=== PATIENT | male | born 1990 | race Hispanic/Latino ===

== ENCOUNTER 2018-03-12 12:24 | Emergency (ER) | payer OTHER ==
[~2018-03-12] VITALS: Ht 170.2 cm; Wt 59.0 kg
--- OUTSIDE RECORDS SUMMARY | 2018-03-12 12:27 | XMS REPORT | Continuity of Care Document ---
Author Author [facility] [place] Interface Address Unknown Phone Unavailable Problems Problem Status Onset Date Classification Date Reported Comments Source Dyspnea at rest 03/12/2018 Diagnosis 03/12/2018 [facility] Elevated blood pressure 03/12/2018 Diagnosis 03/12/2018 [facility] Viral upper respiratory tract infection 03/10/2018 Diagnosis 03/12/2018 [facility] Viral Upper Respiratory Tract Infection 03/09/2018 Problem 03/12/2018 [facility] Dyspnea 03/09/2018 Problem 03/12/2018 [facility] Influenza 04/03/2017 Diagnosis 04/03/2017 [facility] Influenza vaccine needed 01/17/2017 Diagnosis 01/17/2017 [facility] Tuberculosis screening 01/17/2017 Diagnosis 01/17/2017 [facility] Acute maxillary sinusitis 12/11/2015 Diagnosis 12/11/2015 [facility] Sore throat symptom 12/11/2015 Diagnosis 12/11/2015 [facility] 346.01 - MGRN W AURA W N Active 01/23/2014 [facility] [place] Acute Maxillary Sinusitis Problem 04/03/2017 [facility] Sore Throat Symptom Problem 04/03/2017 [facility] Medications Medication Details Route Status Patient Instructions Ordering Provider Order Date Source Purified Protein Derivative of Tuberculin 50 UNT/ML Injectable Solution [Tubersol] Tubersol 5 tub. unit/0.1 mL intradermal injection solution Inject 0.1 mL by intradermal route. Active [facility] Brompheniramine Maleate 0.4 MG/ML / Dextromethorphan Hydrobromide 2 MG/ML / Pseudoephedrine Hydrochloride 6 MG/ML Oral Solution [Bromfed DM] Bromfed DM 2 mg-30 mg-10 mg/5 mL syrup Take 10 mL every 6-8 hours by oral route as needed for 6 days. Active [facility] Amoxicillin 875 MG / Clavulanate 125 MG Oral Tablet [Augmentin] Augmentin 875 mg-125 mg tablet Take 1 tablet every 12 hours by oral route with meals for 7 days. Active [facility] benzonatate 200 MG Oral Capsule benzonatate 200 mg capsule Take 1 capsule 3 times a day by oral route as needed for cough. Active [facility] levocetirizine dihydrochloride 5 MG Oral Tablet [Xyzal] Xyzal 5 mg tablet Take 1 tablet every day by oral route at bedtime for 30 days. Active [facility] Albuterol 0.83 MG/ML Inhalant Solution albuterol sulfate 2.5 mg/3 mL (0.083 %) solution for nebulization Give 1 inhalation every 20 minutes by nebulizer route as needed Active [facility] Brompheniramine Maleate 0.4 MG/ML / Dextromethorphan Hydrobromide 2 MG/ML / Pseudoephedrine Hydrochloride 6 MG/ML Oral Solution reamtlpyvvyhmjo-anirzbmjgqmpaol-ZZ 2 mg-30 mg-10 mg/5 mL syrup Take 10 mL every 6-8 hours by oral route as needed for 6 days. Active [facility] Albuterol 0.09 MG/ACTUAT Metered Dose Inhaler ProAir HFA 90 mcg/actuation aerosol inhaler Inhale 2 puffs every 4-6 hours by inhalation route as needed. Active [facility] Allergies, Adverse Reactions, Alerts Substance Category Reaction Severity Reaction type Status Date Reported Comments Source Immunizations Immunization Date Given Site Status Last Updated Comments Source influenza, unspecified formulation 01/02/2018 completed [facility] influenza, injectable, quadrivalent, preservative free 01/17/2017 completed [facility] Hep B, adolescent or pediatric 03/30/2014 completed [facility] Results Order Name Results Value Reference Range Date Interpretation Comments Source PEF 620 03/12/2018 [facility] Percent Predicted Value 56 % 03/12/2018 [facility] PEF 250 03/10/2018 [facility] Percent Predicted Value 40 % 03/10/2018 [facility] PEF 620 03/09/2018 [facility] Percent Predicted Value 56 % 03/09/2018 [facility] Influenza A positive 04/03/2017 [facility] Influenza B negative 04/03/2017 [facility] RESULT negative 12/11/2015 [facility] SWAB LOCATION Left and Right tonsillar pillars 12/11/2015 [facility] Brain wo contrast MRA Brain wo contrast MRA MRI BRAIN WITHOUT CONTRAST, MRA [place] WITHOUT CONTRAST INDICATION: Migraine with aura, cerebral aneurysm COMPARISON: None DISCUSSION: BRAIN: The white matter is normal in signal. There is no evidence of acute ischemic insults, space occupying lesions, hemorrhage, hydrocephalus, midline shift or extra-axial collections. No cortical based, suprasellar, craniocervical, or bone marrow abnormalities are seen. MRA [place]: The bilateral internal carotid arteries are patent. The bilateral anterior and middle cerebral arteries are patent. The vertebrobasilar arteries and bilateral posterior cerebral arteries are patent. 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 The right anterior cerebral artery arises from the left side. The left TRINH is prominent. A prominent left posterior communicating artery is visible. The vertebral arteries are codominant. No aneurysms or vascular malformations are visualized. IMPRESSION: 1. No intracranial abnormalities are visualized. 2. Unremarkable MRA of the [place]. SL: 16 01/26/2014 - - Read by: Lenard Burkett MD Dictated Date/time: 01/28/14 08:39 Electronically Signed by: Lenard Burkett MD 01/28/14 08:47 FINAL REPORT [facility] Brain wo contrast MRI Brain wo contrast MRI MRI BRAIN WITHOUT CONTRAST, MRA [place] WITHOUT CONTRAST INDICATION: Migraine with aura, cerebral aneurysm COMPARISON: None DISCUSSION: BRAIN: The white matter is normal in signal. There is no evidence of acute ischemic insults, space occupying lesions, hemorrhage, hydrocephalus, midline shift or extra-axial collections. No cortical based, suprasellar, craniocervical, or bone marrow abnormalities are seen. MRA [place]: The bilateral internal carotid arteries are patent. The bilateral anterior and middle cerebral arteries are patent. The vertebrobasilar arteries and bilateral posterior cerebral arteries are patent. 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 The right anterior cerebral artery arises from the left side. The left TIRNH is prominent. A prominent left posterior communicating artery is visible. The vertebral arteries are codominant. No aneurysms or vascular malformations are visualized. IMPRESSION: 1. No intracranial abnormalities are visualized. 2. Unremarkable MRA of the [place]. SL: 16 01/26/2014 - - Read by: Lenard Burkett MD Dictated Date/time: 01/28/14 08:39 Electronically Signed by: Lenard Burkett MD 01/28/14 08:47 FINAL REPORT [facility] Vital Signs Vital Sign Value Date Comments Source Diastolic (mm Hg) 80 03/12/2018 [facility] Height 67 03/12/2018 [facility] Systolic (mm Hg) 110 03/12/2018 [facility] Weight 130 03/12/2018 [facility] Diastolic (mm Hg) 70 03/09/2018 [facility] Height 67 03/09/2018 [facility] Systolic (mm Hg) 108 03/09/2018 [facility] Weight 130 03/09/2018 [facility] Diastolic (mm Hg) 64 04/03/2017 [facility] Height 67 04/03/2017 [facility] Systolic (mm Hg) 104 04/03/2017 [facility] Weight 125 04/03/2017 [facility] Height 67 01/17/2017 [facility] Weight 125 01/17/2017 [facility] Diastolic (mm Hg) 78 12/11/2015 [facility] Height 67 12/11/2015 [facility] Systolic (mm Hg) 118 12/11/2015 [facility] Weight 120 12/11/2015 [facility] Encounters Location Location Details Encounter Type Encounter Number Reason For Visit Attending Provider ADM Date DC Date Status Source [facility] [place] [facility] [id number] Theodora Yoon 01/26/2014 01/27/2014 [facility] [place] - [facility] - [id number] Uma Paris, WORK ORDER DETAILER: [address] [place] [address], Ph. [phone] [id number] Uma Paris 09/17/2015 [facility] [place] [facility] - [id number] Beatriz Holbrook, WORK ORDER DETAILER: [address] [place] [address], Ph. [id number] Beatriz Holbrook 12/11/2015 [facility] [place] [facility] - [id number] LUCIA Layne-C: [address] [place] [address], Ph. [id number] Mohit Holbrook 01/17/2017 [facility] [place] [facility] - [id number] Dickson Stone, WORK ORDER DETAILER: [address], [place] [address], Ph. [id number] Dickson Stone 04/03/2017 [facility] [place] [facility] - [id number] Tonia Arevalo, WORK ORDER DETAILER-C: [address], [place] [address], Ph. [id number] Tonia Clementsroy 03/09/2018 [facility] [place] [facility] - [id number] Tonia Arevalo, WORK ORDER DETAILER-C: [address], [place] [address], Ph. [id number] Tonia Clementsroy 03/09/2018 [facility] [place] [facility] - [id number] Tonia Arevalo, WORK ORDER DETAILER-C: [address], [place] [address], Ph. [id number] Tonia Clementsroy 03/09/2018 [facility] [place] [facility] - [id number] Anainfritz Phan, WORK ORDER DETAILER-C: [address], [place] [address], Ph. [id number] Mindi Phan 03/12/2018 [facility] [place] [facility] - [id number] Anainfritz Phan, WORK ORDER DETAILER-C: [address], [place] [address], Ph. [id number] Mindi Phan 03/12/2018 [facility] Procedures Procedure Code Date Perfomer Comments Source
--- OUTSIDE RECORDS SUMMARY | 2018-03-12 12:27 | XMS REPORT | Summary of Care ---
Author Organization Unknown Address Unknown Phone Unavailable Encounter HQ Rober_winston(CALROS) [id number] Date(s): 01/26/14 - 01/26/14 [facility] Outpatient Imaging [address] Discharge Disposition: Home Physician Attending: Theodora Yoon MD Reason for Visit 346.01 - MGRN W AURA W N Problem List No data available for this section Allergies, Adverse Reactions, Alerts No data available for this section Medications No data available for this section Medications Administered During Your Visit No data available for this section Immunizations No data available for this section
--- OUTSIDE RECORDS SUMMARY | 2018-03-12 12:28 | XMS REPORT | Encounter Summary ---
Author Organization Unknown Address [address] [place] [address] Phone [phone] Reason for Visit Medical Complaint Instructions 1. Dyspnea at rest 2. Elevated blood pressure elevated blood pressure: care instructions dash diet: care instructions blood pressure monitoring education Discussion Note: None recorded. Plan of Care Patient Instructions How can you care for yourself at home? Drink lots of water and other fluids. This helps thin the mucus and soothes a dry or sore throat. Honey or lemon juice in hot water or tea may ease a dry cough. Take cough medicine as directed by your doctor. Prop up your head on pillows to help you breathe and ease a dry cough. Try cough drops to soothe a dry or sore throat. Cough drops don't stop a cough. Medicine-flavored cough drops are no better than candy-flavored drops or hard candy. Do not smoke. Avoid secondhand smoke. If you need help quitting, talk to your doctor about stop-smoking programs and medicines. These can increase your chances of quitting for good. When should you call for help? Call 911 anytime you think you may need emergency care. For example, call if: You have severe trouble breathing. Call your doctor now or seek immediate medical care if: You cough up blood. You have new or worse trouble breathing. You have a new or higher fever. You have a new rash. Watch closely for changes in your health, and be sure to contact your doctor if: You cough more deeply or more often, especially if you notice more mucus or a change in the color of your mucus. You have new symptoms, such as a sore throat, an earache, or sinus pain. You do not get better as expected. Reminders Provider Appointments None recorded. Lab None recorded. Referral None recorded. Procedures None recorded. Surgeries None recorded. Imaging None recorded. Medications Name Start Date albuterol sulfate 2.5 mg/3 mL (0.083 %) solution for nebulization Give 1 inhalation every 20 minutes by nebulizer route as needed taaytvcfqhajpoo-hbdsztvwqispxdb-RN 2 mg-30 mg-10 mg/5 mL syrup Take 10 mL every 6-8 hours by oral route as needed for 6 days. Medications Administered None recorded. Vitals Height Weight BMI Blood Pressure 5 ft 7 in 130 lbs 20.4 kg/m2 110/80 mm[Hg] Lab Results Date Name Specimen Result Interpretation Description Value Range Status Address 03/09/2018 Peak Flow Pef 250 [facility]: 9 [facility] Percent Predicted Value 40% [facility]: 9 [facility] Peak Flow Pef 620 [facility]: 9 [facility] Percent Predicted Value 56% [facility]: 9 [facility] Allergies Code Code System Name Reaction Severity Status Onset NKDA Problems Name Status Onset Date Source Viral Upper Respiratory Tract Infection Active 03/09/2018 Dyspnea Active 03/09/2018 Procedures None recorded. Vaccine List Vaccine Type Hep B, adolescent or pediatric mL influenza, injectable, quadrivalent, preservative free 01/17/2017 influenza, unspecified formulation 01/02/2018 Social History Smoking Status Never Smoker Past Encounters 03/12/2018 Dyspnea at Rest; Elevated Blood Pressure Deliciatessytye Emilie GREEN MARKETING SPECIALIST-C: [address] [place] [address], Ph. 03/09/2018 Viral Upper Respiratory Tract Infection; Dyspnea Tonia Arevalo GREEN MARKETING SPECIALIST-C: [address] [place] [address], Ph. History of Present Illness Cough Reported By: Patient HPI: Location: chest. Quality: productive cough. Duration: 3 days. Severity: severe. Onset/Timing: gradual. Context: no sick contacts, no foreign travel, non- smoker, allergies. Modifying factors: ; pt was given inhaler last visit and states it does not work for him. Associated Symptoms: no sputum production, no wheezing, no sweats, no significant weight gain, no significant weight loss, no sore throat, no vomiting, no diarrhea, no rash, no nausea, no fever/chills, no muscle aches, no headache, shortness of breath, difficulty breathing at night, morning cough; dizziness Review of Systems:ROS as noted in the HPI Review of Systems Basic Reported By: Patient Physical Exam Adult Basic, Adult Male Complete Reported By: Patient Constitutional: General Appearance: healthy-appearing, well-nourished, well-developed. Level of Distress: acutely ill. Ambulation: ambulating normally Psychiatric: Mental Status: active and alert. Orientation: to time, to place, to person Lungs: Respiratory effort: no dyspnea, no tachypnea, no use of accessory muscles, no intercostal retractions. Auscultation: breath sounds normal Cardiovascular: Heart Auscultation: RRR, no murmurs
--- OUTSIDE RECORDS SUMMARY | 2018-03-12 12:28 | XMS REPORT | Encounter Summary ---
Author Organization Unknown Address [address] [place] [address] Phone [phone] Reason for Visit Medical Complaint Instructions 1. Acute maxillary sinusitis Augmentin 875 mg-125 mg tablet Xyzal 5 mg tablet benzonatate 200 mg capsule 2. Sore throat symptom rapid strep group A, throat Discussion Note: None recorded. Patient educational handouts: No information available. Plan of Care Patient Instructions Take antibiotic as prescribed. Handwashing. Increase fluid intake and plenty of rest. May take tynenol/motrin for pain. may use cloraseptic throat spray for sore throat. Start onRhinocort daily x 7days.If no improvement in 3 days, or worsening of symptoms, see primary care physician or call clinic. Reminders Provider Appointments None recorded. Lab Rapid Strep Group a, Throat 12/11/2015 [facility] Referral None recorded. Procedures None recorded. Surgeries None recorded. Imaging None recorded. Medications Name Start Date Augmentin 875 mg-125 mg tablet Take 1 tablet every 12 hours by oral route with meals for 7 days. benzonatate 200 mg capsule Take 1 capsule 3 times a day by oral route as needed for cough. Xyzal 5 mg tablet Take 1 tablet every day by oral route at bedtime for 30 days. Medications Administered None recorded. Vitals Height Weight BMI Blood Pressure 5 ft 7 in 120 lbs 18.8 118/78 Lab Results Date Name Result Description Value Range Status Rapid Strep Group a, Throat Result negative Swab Location Left and Right tonsillar pillars Allergies Name Reaction Severity Onset NKDA Problems Name Status Onset Date Source Acute Maxillary Sinusitis Active Encounter Sore Throat Symptom Active Encounter Procedures None recorded. Vaccine List Vaccine Type Hep B, adolescent or pediatric mL Social History Smoking Status Never Smoker Past Encounters 12/11/2015 Acute Maxillary Sinusitis; Sore Throat Symptom Beatriz Holbrook, MOBILE EQUIPMENT SERVICER: [address] [place] [address], Ph. History of Present Illness Throat-Oral Complaint Reported By: Patient HPI: Location: throat. Quality: sore throat, congested, dry or hacking cough, feels 50 percent of normal. Severity: moderate. Duration: 2 days. Onset/Timing: gradual. Context: no sick contacts, no foreign travel, non-smoker. Modifying factors: OTC medication. Associated Symptoms: no sputum production, no shortness of breath, no wheezing, no change in number of pillows needed to sleep at night, no sweats, no significant weight gain, no significant weight loss, no morning cough, no vomiting, no diarrhea, no rash, no nausea, sore throat Review of Systems Basic Reported By: Patient Constitutional: Constitutional: fever Eyes: Eyes: no eye complaints Jtey-Ojum-Fbwif-Throat: Ears: no ear complaints. Nose: nose/sinus problems. Mouth/Throat: no bleeding gums, no mouth complaints, no teeth problems, sore throat Cardiovascular: Cardiovascular: no chest pain, no shortness of breath, no known heart murmur Respiratory: Respiratory: no wheezing, no shortness of breath, cough Gastrointestinal: Gastrointestinal: no abdominal pain, no vomiting / diarrhea Genitourinary: Genitourinary: no urinary complaints, no discharge Musculoskeletal: Musculoskeletal: no muscle aches, no muscle weakness, no arthralgias/joint pain, no back pain Skin: Skin: no abnormal / changing mole, no jaundice, no rashes Neurologic: Neurologic: no loss of consciousness, no weakness, no numbness, no seizures, no dizziness, no headaches Physical Exam Adult Basic, Adult Male Complete Constitutional: General Appearance: healthy-appearing, well-nourished, well-developed. Level of Distress: NAD. Ambulation: ambulating normally Psychiatric: Mental Status: active and alert. Orientation: to time, to place, to person Eyes: Lids and Conjunctivae: non-injected, no discharge, no pallor. Pupils: PERRLA. Corneas: grossly intact. EOM: EOMI. Lens: clear. Sclerae: non-icteric. Vision: acuity grossly intact, peripheral vision grossly intact Hrm-Jpkh-Scawa-Throat: Ears: no lesions on external ear, no outer ear tenderness, EACs clear, TMs clear, middle ear fluid. Hearing: no hearing loss. Nose: no lesions on external nose, nares patent, no septal deviation, nasal passages clear, sinus tenderness, nasal discharge--purulent, post nasal drip. Lips, Teeth, and Gums: no mouth or lip ulcers, no bleeding gums, normal dentition. Oropharynx: moist mucous membranes, no exudates, tonsils not enlarged, erythema Neck: Neck: supple, trachea midline, no masses, FROM. Lymph Nodes: no supraclavicular LAD, anterior cervical LAD. Thyroid: no enlargement, non-tender, no nodules Lungs: Respiratory effort: no dyspnea, no tachypnea, no use of accessory muscles, no intercostal retractions. Auscultation: breath sounds normal, good air movement Cardiovascular: Heart Auscultation: RRR, no murmurs
--- OUTSIDE RECORDS SUMMARY | 2018-03-12 12:28 | XMS REPORT | Encounter Summary ---
Author Organization Unknown Address [address] [place] [address] Phone [phone] Reason for Visit Medical Complaint Instructions 1. [...] 20 minutes by nebulizer route as needed qswkovqqywenjcb-tqkllktmpwgzmcj-MK 2 mg-30 mg-10 mg/5 mL syrup Take 10 mL every 6-8 hours by oral route as needed for 6 days. Medications Administered None recorded. Vitals Height Weight BMI Blood Pressure 5 ft 7 in 130 lbs 20.4 kg/m2 110/80 mm[Hg] Lab Results Date Name Specimen Result Interpretation Description Value Range Status Address 03/09/2018 Peak Flow Pef 250 [facility]: 9 [facility] Percent Predicted Value 40% [facility]: 9 [facility] Peak Flow Pef 620 [facility]: 9 [facility] Percent Predicted Value 56% [facility]: 9 [facility] Allergies Code Code System Name Reaction [...] at Rest; Elevated Blood Pressure Deliciatessytye Emilie BENCH WORKER-C: [address] [place] [address], Ph. 03/09/2018 Viral Upper Respiratory Tract Infection; Dyspnea Tonia Arevalo BENCH WORKER-C: [address] [place] [address], Ph. History of Present Illness Cough Reported [...]
--- OUTSIDE RECORDS SUMMARY | 2018-03-12 12:28 | XMS REPORT | Encounter Summary ---
Author Organization Unknown Address [address] [place] [address] Phone [phone] Reason for Visit Medical Complaint Instructions 1. Influenza influenza (flu): care instructions Bromfed DM 2 mg-30 mg-10 mg/5 mL syrup rapid flu (A+B) Discussion Note See handout Plan of Care Patient Instructions See handout Reminders Provider Appointments None recorded. Lab Rapid Flu (A+B) 04/03/2017 [facility] Referral None recorded. Procedures None recorded. Surgeries None recorded. Imaging None recorded. Medications Name Start Date Bromfed DM 2 mg-30 mg-10 mg/5 mL syrup Take 10 mL every 4 hours by oral route for 10 days. Tubersol 5 tub. unit/0.1 mL intradermal injection solution Inject 0.1 mL by intradermal route. Medications Administered None recorded. Vitals Height Weight BMI Blood Pressure 5 ft 7 in 125 lbs 19.6 kg/m2 104/64 mm[Hg] Lab Results Date Name Specimen Result Interpretation Description Value Range Status Address Rapid Flu (A+B) Influenza a positive [facility]: [address] [place] [address] Influenza B negative [facility]: [address] [place] [address] Allergies Code Code System Name Reaction Severity Status Onset NKDA Problems Name Status Onset Date Source Acute Maxillary Sinusitis Active Encounter Sore Throat Symptom Active Encounter Procedures None recorded. Vaccine List Vaccine Type Hep B, adolescent or pediatric mL influenza, injectable, quadrivalent, preservative free 01/17/2017 Social History Smoking Status Never Smoker Past Encounters 04/03/2017 Influenza LUCIA Hicks: [address] [place] [address], Ph. History of Present Illness [id number]-Tue Reported By: Patient HPI: Quality: cannot identify. Duration: 3 days. Severity: highest temperature 101. Onset/Timing: first recorded Yesterday. Context: no tick/insect bites, no recent travel, no new medications, ill contacts. Associated Symptoms: no rash, no lethargy, fever/chills, headache, muscle aches, cold symptoms, generalized pain, tired (fatigue), cough, nasal passage blockage (stuffiness), nasal discharge. Modifying Factors OTC medication Review of Systems:ROS as noted in the HPI Review of Systems Basic Reported By: Patient Physical Exam Adult Basic Reported By: Patient Constitutional: General Appearance: healthy-appearing, well-nourished, well-developed. Level of Distress: NAD. Ambulation: ambulating normally Psychiatric: Mental Status: active and alert. Orientation: to time, to place, to person Eyes: Lids and Conjunctivae: non-injected, no discharge, no pallor. Pupils: PERRLA. Corneas: grossly intact. EOM: EOMI. Lens: clear. Sclerae: non-icteric. Vision: acuity grossly intact Ukh-Mszw-Gvioi-Throat: Ears: no lesions on external ear, no outer ear tenderness, EACs clear, TMs clear. Hearing: no hearing loss. Nose: no lesions on external nose, nares patent, no septal deviation, nasal passages clear, no sinus tenderness, nasal discharge--rhinorrhea, post nasal drip. Lips, Teeth, and Gums: no mouth or lip ulcers, no bleeding gums, normal dentition. Oropharynx: moist mucous membranes, no erythema, no exudates, tonsils not enlarged Neck: Neck: supple, trachea midline, no masses, FROM. Lymph Nodes: no cervical LAD, no supraclavicular LAD. Thyroid: no enlargement, non-tender, no nodules Lungs: Respiratory effort: no dyspnea, no tachypnea, no use of accessory muscles, no intercostal retractions. Auscultation: breath sounds normal Cardiovascular: Heart Auscultation: RRR, no murmurs Musculoskeletal:: Motor Strength and Tone: normal motor strength, normal tone. Joints, Bones, and Muscles: normal movement of all extremities, no bony abnormalities, no contractures, no malalignment, no tenderness Neurologic: Gait and Station: normal gait, normal station. Cranial Nerves: grossly intact. Sensation: grossly intact Skin: Inspection and palpation: no rash, no lesions, no ulcer, no abnormal nevi, no induration, no nodules, good turgor, no jaundice. Nails: normal Back: Thoracolumbar Appearance: normal curvature
--- OUTSIDE RECORDS SUMMARY | 2018-03-12 12:28 | XMS REPORT | Encounter Summary ---
Author Organization Unknown Address [address] [place] [address] Phone [phone] Reason for Visit Screening - TB Instructions 1. Tuberculosis screening PPD (purified protein derivative), skin test - Patient was advised to follow-up with [facility] within 48-72 hours. Tubersol 5 tub. unit/0.1 mL intradermal injection solution Discussion Note: None recorded. Patient educational handouts: No information available. Plan of Care Patient Instructions Please do not put a band aid on, do not scratch or rub on the site. Reminders Provider Appointments None recorded. Lab PPD (Purified Protein Derivative), Skin Test 09/17/2015 [facility] Referral None recorded. Procedures None recorded. Surgeries None recorded. Imaging None recorded. Medications Name Start Date Tubersol 5 tub. unit/0.1 mL intradermal injection solution Medications Administered Name Date Tubersol 5 tub. unit/0.1 mL intradermal injection solution Take 0 mL by intradermal route. [id number] Vitals None recorded. Lab Results None recorded. Allergies Name Reaction Severity Onset NKDA Problems None recorded. Procedures None recorded. Vaccine List Vaccine Type Hep B, adolescent or pediatric mL Social History Smoking Status Never Smoker Past Encounters 09/17/2015 Tuberculosis Screening GERRI MalagonP: [address] [place] [address], Ph. History of Present Illness Screening Request - TB Reported By: Patient Screening Request: BCG No prior BCG vaccination. PPD No past history of postive TB skin test (PPD), No previous severe local reaction to TB skin test (PPD) Review of Systems Screening - TB Reported By: Patient Symptoms during past year > 2 weeks, NOT associated with specific illness?: unexplained or low grade fever No fever. night sweats No night sweats. unexplained weight loss > 5 lbs No unexplained weight loss. persistent cough No persistent cough. shortness of breath No shortness of breath. coughing up blood (hemoptysis) No coughing up blood (hemoptysis). unusual fatigue No unusual fatigue. loss of appetite No loss of appetite. swollen neck glands No swollen neck glands Physical Exam Screening General Appearance: General: well-developed, well-nourished, no acute distress
--- OUTSIDE RECORDS SUMMARY | 2018-03-12 12:28 | XMS REPORT | Encounter Summary ---
Author Organization Unknown Address [address] [place] [address] Phone [phone] Reason for Visit Medical Complaint Instructions 1. Viral upper respiratory tract infection Bromfed DM 2 mg-30 mg-10 mg/5 mL syrup ProAir HFA 90 mcg/actuation aerosol inhaler 2. Dyspnea shortness of breath: care instructions peak flow albuterol sulfate 2.5 mg/3 mL (0.083 %) solution for nebulization peak flow patient follow up phone call Discussion Note Pt is in NAD; Verbalizes understanding of all instructions with no questions at this time. Plan of Care Patient Instructions Start Bromfed DM for cough. Start ProAir Inhalers 2 puffs every 4-6 hrs as needed for shortness of breath/wheezing. Next breathing treatment at 1130 pm or 1:30 AM. Take medications as prescribed and follow up with a PCP within 2-3 if symptoms worsen as discussed. In case of emergency call 911 or go to nearest ER. Reminders Provider Appointments None recorded. Lab None recorded. Referral None recorded. Procedures None recorded. Surgeries None recorded. Imaging None recorded. Medications Name Start Date albuterol sulfate 2.5 mg/3 mL (0.083 %) solution for nebulization Give 1 inhalation every 20 minutes by nebulizer route as needed Bromfed DM 2 mg-30 mg-10 mg/5 mL syrup Take 10 mL every 6-8 hours by oral route as needed for 6 days. ProAir HFA 90 mcg/actuation aerosol inhaler Inhale 2 puffs every 4-6 hours by inhalation route as needed. Medications Administered Name Date albuterol sulfate 2.5 mg/3 mL (0.083 %) solution for nebulization Give 1 inhalation every 20 minutes by nebulizer route as needed [id number]:27:15 Vitals Height Weight BMI Blood Pressure 5 ft 7 in 130 lbs 20.4 kg/m2 108/70 mm[Hg] Lab Results Date Name Specimen Result Interpretation Description Value Range Status Address 03/09/2018 Peak Flow Pef 250 [facility]: [facility] Percent Predicted Value 40% [facility]: [facility] Peak Flow Pef 620 [facility]: [facility] Percent Predicted Value 56% [facility]: [facility] Allergies Code Code System Name Reaction Severity Status Onset NKDA Problems Name Status Onset Date Source Viral Upper Respiratory Tract Infection Active 03/09/2018 Dyspnea Active 03/09/2018 Procedures None recorded. Vaccine List Vaccine Type Hep B, adolescent or pediatric mL influenza, injectable, quadrivalent, preservative free 01/17/2017 influenza, unspecified formulation 01/02/2018 Social History Smoking Status Never Smoker Past Encounters 03/09/2018 Viral Upper Respiratory Tract Infection; Dyspnea Tonia Arevalo, [facility]: [address] [place] [address], Ph. History of Present Illness Cough Reported By: Patient HPI: Location: chest. Quality: productive cough, congested. Duration: 4 days. Severity: moderate. Onset/Timing: gradual. Context: no sick contacts, no foreign travel, non-smoker. Modifying factors: ; Has not taken anything. Associated Symptoms: no sputum production, no wheezing, no sweats, no significant weight gain, no significant weight loss, no morning cough, no sore throat, no vomiting, no diarrhea, no rash, no nausea, no fever/chills, no muscle aches, no headache, shortness of breath; chest congestion and productive cough Note:
Review of Systems:ROS as noted in the HPI Review of Systems Basic Reported By: Patient Physical Exam Adult Basic, Adult Male Complete Reported By: Patient Constitutional: General Appearance: healthy-appearing, well-nourished, well-developed. Level of Distress: mild distress. Ambulation: ambulating normally Psychiatric: Mental Status: active and alert. Orientation: to time, to place, to person Tvc-Ukbg-Zjmlv-Throat: Ears: no lesions on external ear, no outer ear tenderness, EACs clear, TMs clear. Hearing: no hearing loss. Nose: no lesions on external nose, nares patent, no septal deviation, nasal passages clear, no sinus tenderness, no nasal discharge. Lips, Teeth, and Gums: no mouth or lip ulcers, no bleeding gums, normal dentition. Oropharynx: moist mucous membranes, no erythema, no exudates, tonsils not enlarged Neck: Lymph Nodes: no cervical LAD Lungs: Respiratory effort: no dyspnea, no tachypnea, no use of accessory muscles, no intercostal retractions. Auscultation: breath sounds normal Cardiovascular: Heart Auscultation: RRR, no murmurs Neurologic: Gait and Station: normal gait, normal station Notes:
--- OUTSIDE RECORDS SUMMARY | 2018-03-12 12:28 | XMS REPORT | Encounter Summary ---
Author Organization Unknown Address [address] [place] [address] Phone [phone] Reason for Visit Flu Immunization; Screening - TB Instructions 1. Influenza vaccine needed Fluarix Quad [id number] (PF) 60 mcg (15 mcg x 4)/0.5 mL IM syringe 2. Tuberculosis screening Tubersol 5 tub. unit/0.1 mL intradermal injection solution PPD (purified protein derivative), skin test - Patient was advised to follow-up with [facility] within 48-72 hours. Discussion Note: None recorded. Patient educational handouts: No information available. Plan of Care Patient Instructions refer to vis handout with any questions regarding vaccine as discussed. follow up pcp prn RTC in 48-72 for reading. see vis handout for any questions. Reminders Provider Appointments None recorded. Lab PPD (Purified Protein Derivative), Skin Test 01/17/2017 [facility] Referral None recorded. Procedures None recorded. Surgeries None recorded. Imaging None recorded. Medications Name Start Date Tubersol 5 tub. unit/0.1 mL intradermal injection solution Inject 0.1 mL by intradermal route. Medications Administered Name Date Tubersol 5 tub. unit/0.1 mL intradermal injection solution Inject 0.1 mL by intradermal route. [id number]:[id number] Vitals Height Weight BMI 5 ft 7 in 125 lbs 19.6 kg/m2 Lab Results None recorded. Allergies Code Code System Name Reaction Severity Status Onset NKDA Problems Name Status Onset Date Source Acute Maxillary Sinusitis Active Encounter Sore Throat Symptom Active Encounter Procedures None recorded. Vaccine List Vaccine Type Hep B, adolescent or pediatric mL influenza, injectable, quadrivalent, preservative free 01/17/2017 Social History Smoking Status Never Smoker Past Encounters 01/17/2017 Influenza Vaccine Needed; Tuberculosis Screening LUCIA Layne-C: [address] [place] [address], Ph. History of Present Illness Immunization Reported By: Patient HPI: Immunization Request (normal) no symptoms. Immunization eligibility questions No vaccines in last month, No reaction to previous vaccines:, No Known Allergies Screening Request - TB Reported By: Patient Review of Systems Basic, Screening - TB Reported By: Patient Constitutional: Constitutional: no fever, No night sweats Eyes: Eyes: no eye complaints Mgzf-Cvru-Llmrj-Throat: Ears: no ear complaints. Nose: no nose/sinus problems. Mouth/Throat: no sore throat, no bleeding gums, no mouth complaints, no teeth problems Cardiovascular: Cardiovascular: no chest pain, no shortness of breath, no known heart murmur Respiratory: Respiratory: no cough, no wheezing, no shortness of breath Gastrointestinal: Gastrointestinal: no abdominal pain, no vomiting / diarrhea Genitourinary: Genitourinary: no urinary complaints, no discharge Musculoskeletal: Musculoskeletal: no muscle aches, no muscle weakness, no arthralgias/joint pain, no back pain Skin: Skin: no abnormal / changing mole, no jaundice, no rashes Neurologic: Neurologic: no loss of consciousness, no weakness, no numbness, no seizures, no dizziness, no headaches Symptoms during past year > 2 weeks, NOT associated with specific illness?: unexplained weight loss > 5 lbs No unexplained weight loss. coughing up blood (hemoptysis) No coughing up blood (hemoptysis). unusual fatigue No unusual fatigue. loss of appetite No loss of appetite. swollen neck glands No swollen neck glands Physical Exam Immunization, Screening Reported By: Patient General Appearance: General: well-developed, well-nourished, no acute distress
[2018-03-12] MEDS ORDERED: ALBUTEROL SULF 0.083% NEB SOLN 3 ML NEB NEB STA (12:47)
[2018-03-12] MEDS ORDERED: IPRATROPIUM BROMIDE 0.02% 2.5 ML NEB NEB STA (12:47)
[2018-03-12] MEDS ORDERED: DEXAMETHASONE SOD PHOS 10 MG/1 ML VIAL IM ONE (13:00)
--- NOTE | 2018-03-12 14:18 | Diagnostic Imaging Report ---
EXAMINATION: PA and lateral views of the chest. COMPARISON: None CLINICAL HISTORY: Shortness of breath DISCUSSION: Lines/tubes: None. Lungs: The lungs are well inflated and clear. No pneumonia or pulmonary edema. Pleura: No pleural effusion or pneumothorax. Heart and mediastinum: The cardiomediastinal silhouette is normal. Bones and soft tissues: No acute bony abnormalities. IMPRESSION: No acute cardiopulmonary abnormalities. Signed by: Dr. Josep Watts M.D. on 03/12/2018 2:15 PM
== END 2018-03-12 16:10 | disposition home or self-care (01) ==
LOC: FSED 12:24
DX: R05 Cough (principal); J20.9 Acute bronchitis, unspecified
CPT/HCPCS: 71046; 99284